=== PATIENT | female | born 1960 | race Caucasian/White ===

== ENCOUNTER 2017-01-31 08:57 | Outpatient (CLI) | payer OTHER ==
[2017-01-31 09:48] LABS: eGFR (African) > 60; eGFR (Non-African) > 60
== END 2017-01-31 09:00 ==
LOC: LAB 08:57
PROVIDERS: ATTEND Family Medicine
DX: Z00.00 Encounter for general adult medical examination without abnormal findings (principal); Z12.4 Encounter for screening for malignant neoplasm of cervix
CPT/HCPCS: 36415; 80053; 80061; 88148; G0143

== ENCOUNTER 2017-06-21 11:25 | Outpatient (CLI) | payer OTHER ==
--- NOTE | 2017-06-21 15:30 | Diagnostic Imaging Report ---
JORGE LUIS EARL [facility] [address] [facility].[address] [id number] Report Submission Date: Jun 21, 2017 12:06:55 PM CDT Patient Study Name: BRANDON MORIN Date: Jun 21, 2017 11:43:09 AM CDT Modality Type: CR Gender: F Description: SPINE : 56 Institution: [facility] Physician: JORGE LUIS EARL Examination: Plain film lumbar spine History: Back discomfort Findings: 5 views of the lumbar spine demonstrates curvature to the left. Scatter ossific spurs. No anterior compression. No soft tissue abnormalities. Impression: Curvature and degenerative changes. If patient is experiencing neurologic symptoms, consider obtaining MRI. Electronically signed on Jun 21, 2017 12:06:55 PM CDT by: José Antonio PRICE
--- NOTE | 2017-06-21 15:31 | Diagnostic Imaging Report ---
JORGE LUIS EARL [facility] [address] [facility].[address] [id number] Report Submission Date: Jun 21, 2017 12:10:10 PM CDT Patient Study Name: BRANDON MORIN Date: Jun 21, 2017 11:37:07 AM CDT Modality Type: CR Gender: F Description: PELVIS : 56 Institution: [facility] Physician: JORGE LUIS EARL Examination: Plain film pelvis/hips History: Hip discomfort Comparison exams: None provided Findings: 5 views of the pelvis and hips demonstrate normal cortical margins. No fracture no dislocation. No soft tissue abnormality. Lumbar degenerative changes. Impression: No acute osseous abnormality. Electronically signed on Jun 21, 2017 12:10:10 PM CDT by: José Antonio PRICE
== END 2017-06-21 11:30 ==
LOC: RAD 11:25
PROVIDERS: ATTEND Nurse Practitioner Family
DX: M25.551 Pain in right hip (principal); M25.552 Pain in left hip; M54.42 Lumbago with sciatica, left side; G89.29 Other chronic pain
CPT/HCPCS: 72110; 73521

== ENCOUNTER 2017-10-22 10:36 | Outpatient (CLI) | payer OTHER | END 2017-10-22 10:38 | LOC: LABRHC 10:36 | PROVIDERS: ATTEND Family Medicine | DX: R87.613 High grade squamous intraepithelial lesion on cytologic smear of cervix (HGSIL) (principal) | CPT/HCPCS: 88148; G0143 ==

== ENCOUNTER 2017-10-28 08:27 | Day surgery (SDC) | payer OTHER ==
--- NOTE | 2017-10-28 16:04 | GI Report ---
REFERRING PHYSICIAN: Dr. Ananya Gregorio DAM ATTENDANT: Nik Patten MD PROCEDURE MEDICATION: Propofol as per anesthesia. INDICATIONS: Patient is a 57-year-old woman who had an adenomatous polyp about 10 years ago. A colonoscopy 5 years ago was negative. She denies any change in bowel habits. Her father had ulcerative colitis and brain cancer. PROCEDURE PERFORMED: Colonoscopy. PROCEDURE: An Olympus video colonoscope was advanced to the rectum. A slightly atonic redundant colon. It took some nurse compression to reach the base of the cecum. The appendiceal orifice and terminal ileum were normal. On slow withdrawal, the cecum, ascending colon, and transverse colon with no obvious intraluminal lesions noted. The descending colon and sigmoid with some redundancy, no obvious intraluminal lesions were noted. Retroflexion of the rectum was normal. Patient tolerated the procedure well. FINDINGS: Normal mucosa to the cecum. RECOMMENDATIONS: 1. Continue a high-fiber diet. 2. Consider re-looking at her colon in 7 to 10 years since it has been negative and no recurrence of adenoma over the last 5 years. cc: Dr. Ananya PRICE
== END 2017-10-28 08:30 ==
LOC: OPSURG 08:27
PROVIDERS: ATTEND Internal Medicine Gastroenterology
DX: Z12.11 Encounter for screening for malignant neoplasm of colon (principal); Z80.9 Family history of malignant neoplasm, unspecified; I10 Essential (primary) hypertension
CPT/HCPCS: 45378; J2001; J2704; J7120; S1016

== ENCOUNTER 2019-01-06 13:45 | Outpatient (CLI) | payer OTHER | END 2019-01-06 13:47 | LOC: LABRHC 13:45 | PROVIDERS: ATTEND Family Medicine | DX: Z12.4 Encounter for screening for malignant neoplasm of cervix (principal) | CPT/HCPCS: 88148; G0143 ==